=== PATIENT | male | born 1945 | race Caucasian/White ===

== ENCOUNTER → 2016-07-16 | Outpatient (REF) | LOC: ZLAB.WCH 15:42 | DX: Z01.89 Encounter for other specified special examinations (principal) ==

== ENCOUNTER → 2016-12-12 | Outpatient (REF) | LOC: ZLAB.WCH 10:30 | DX: Z01.89 Encounter for other specified special examinations (principal) ==

== ENCOUNTER → 2017-02-10 | Outpatient (REF) | LOC: ZLAB.WCH 19:26 | DX: Z01.89 Encounter for other specified special examinations (principal) ==

== ENCOUNTER → 2017-07-01 | Outpatient (REF) | LOC: ZLAB.WCH 17:51 | DX: Z01.89 Encounter for other specified special examinations (principal) ==

== ENCOUNTER → 2017-07-02 | Outpatient (REF) ==
[2017-07-02 18:10] LABS: IRON,SERUM 28 ug/dL (35-150)
[2017-07-02 18:19] LABS: TOTAL IRON BINDING CAPACITY 291 ug/dL (261-462)
[2017-07-02 18:47] LABS: FERRITIN 206 ng/mL (18-464)
== END ==
LOC: ZLAB.WCH 17:54
PROVIDERS: Nurse Practitioner Family
DX: Z01.89 Encounter for other specified special examinations (principal)

== ENCOUNTER 2017-07-28 10:57 | Day surgery (SDC) | payer MEDICARE ==
[2005-05-14 06:23] VITALS: BP 120/81
[~2017-07-28] VITALS: Ht 180.3 cm; Wt 87.8 kg
[~2017-07-28 10:57] MED LIST: COLACE 100100 MG/CAP PO; EFFEXOR XR75 MG/CAP PO; FOLIC ACID 40400 MCG PO; GLUCOPHAGE500 MG/TAB PO; LAMICTAL XR50 MG PO; LIPITOR 10MG10 MG PO; MASON NATURAL1200 MG PO; NATURE'S BLEND500 M1 PO; PAMELOR50 MG PO; PRINIVIL10 MG PO; THE MEDICINE S200 M2 PO; VITAMIN D31000 I1 PO
[2017-07-28 11:14] VITALS: BP 127/76; PULSE 80; TEMP 98.4
[2017-07-28 13:18] VITALS: BP 12108/7; PULSE 83; TEMP 98.8
[2017-07-28 13:33] VITALS: BP 124/77; PULSE 83
[2017-07-28 13:48] VITALS: BP 124/77; PULSE 85
== END 2017-07-28 14:10 | disposition home or self-care (01) ==
LOC: SDCO 10:57
DX: D64.9 Anemia, unspecified (principal); Z80.0 Family history of malignant neoplasm of digestive organs; Z86.010 Personal history of colon polyps; I10 Essential (primary) hypertension; E11.9 Type 2 diabetes mellitus without complications; Z79.84 Long term (current) use of oral hypoglycemic drugs; Z85.46 Personal history of malignant neoplasm of prostate; Z90.79 Acquired absence of other genital organ(s); F32.9 Major depressive disorder, single episode, unspecified; G47.30 Sleep apnea, unspecified; E78.00 Pure hypercholesterolemia, unspecified; E03.9 Hypothyroidism, unspecified; Z87.891 Personal history of nicotine dependence
CPT/HCPCS: OP; J2704; J7030

== ENCOUNTER → 2017-08-12 | Outpatient (REF) | LOC: ZLAB.WCH 17:58 | DX: Z01.89 Encounter for other specified special examinations (principal) ==

== ENCOUNTER → 2017-08-13 | Outpatient (REF) | LOC: ZLAB.WCH 14:25 | DX: Z01.89 Encounter for other specified special examinations (principal) ==

== ENCOUNTER → 2017-08-24 | Outpatient (REF) | LOC: ZLAB.WCH 15:30 | DX: Z01.89 Encounter for other specified special examinations (principal) ==

== ENCOUNTER → 2017-08-31 | Outpatient (REF) | LOC: ZLAB.WCH 16:21 | DX: Z01.89 Encounter for other specified special examinations (principal) ==

== ENCOUNTER → 2017-09-07 | Outpatient (REF) ==
[2017-09-07 12:15] LABS: C-REACTIVE PROTEIN 0.9 mg/dL (0.0-0.9); CALCIUM 9.2 mg/dL (8.4-10.2); CREATININE, serum 0.72 mg/dL (0.66-1.25); POTASSIUM 4.2 mmol/L (3.4-5.0)
== END ==
LOC: ZLAB.WCH 12:01
PROVIDERS: Internal Medicine Infectious Disease
DX: Z01.89 Encounter for other specified special examinations (principal)

== ENCOUNTER → 2017-09-24 | Outpatient (REF) | LOC: ZLAB.WCH 14:24 | DX: Z01.89 Encounter for other specified special examinations (principal) ==

== ENCOUNTER → 2017-10-06 | Outpatient (REF) | LOC: ZLAB.WCH 14:36 | DX: Z01.89 Encounter for other specified special examinations (principal) ==

== ENCOUNTER → 2017-11-23 | Outpatient (REF) | LOC: ZLAB.WCH 15:55 | DX: Z12.31 Encounter for screening mammogram for malignant neoplasm of breast (principal) ==

== ENCOUNTER → 2018-06-02 | Outpatient (REF) | LOC: ZLAB.WCH 15:58 | DX: Z01.89 Encounter for other specified special examinations (principal) ==

== ENCOUNTER 2018-08-30 18:08 | Emergency (ER) | payer MEDICARE ==
[2005-05-14 06:23] VITALS: BP 120/81
[~2018-08-30] VITALS: Ht 180.3 cm; Wt 93.6 kg
[2018-08-30 18:13] VITALS: BP 173/101; TEMP 97.3
[2018-08-30 19:10] VITALS: PULSE 81
== END 2018-08-30 19:12 | disposition home or self-care (01) ==
LOC: COL.ER 18:08
DX: L03.113 Cellulitis of right upper limb (principal); E11.9 Type 2 diabetes mellitus without complications; Z79.84 Long term (current) use of oral hypoglycemic drugs
CPT/HCPCS: J0696

== ENCOUNTER → 2023-12-01 | Outpatient (CLI) | payer MEDICARE | LOC: MHCPAIN 09:19 | DX: M47.26 Other spondylosis with radiculopathy, lumbar region (principal); M48.07 Spinal stenosis, lumbosacral region; M54.50 Low back pain, unspecified; I10 Essential (primary) hypertension; E03.9 Hypothyroidism, unspecified; E78.5 Hyperlipidemia, unspecified; Z95.2 Presence of prosthetic heart valve; Z79.82 Long term (current) use of aspirin | CPT/HCPCS: G0463 ==